=== PATIENT | male | born 1985 | race African-American/Black ===

== ENCOUNTER 2019-11-07 15:43 | Emergency (ER) | payer BC, OTHER, SELFPAY | END 2019-11-07 16:50 | disposition home or self-care (01) | LOC: MADERS 15:43 | DX: K61.0 Anal abscess (principal); F20.9 Schizophrenia, unspecified; I10 Essential (primary) hypertension; F31.9 Bipolar disorder, unspecified; F17.210 Nicotine dependence, cigarettes, uncomplicated; Z79.899 Other long term (current) drug therapy | CPT/HCPCS: 99283 ==